=== PATIENT | female | born 1985 | race African-American/Black ===

== ENCOUNTER 2019-04-22 07:07 | Emergency (ER) | payer MEDICAID, OTHER ==
[~2019-04-22] VITALS: Ht 157.5 cm; Wt 80.0 kg
[~2019-04-22 07:07] MED LIST: BUTA1CAP38 PO; HC30CR25 TOP
[2019-04-22 07:09] VITALS: BP 116/52; PULSE 76; RESP 18; Ht 157.5 cm; Wt 80.0 kg
--- NOTE | 2019-04-22 10:56 | ERD ---
ER Documentation Chief Complaint Chief Complaint left arm posssible insect bite HPI 33-year-old female presenting with bug bite to left upper arm. She states very itchy and she noticed this earlier today. Denies any severe pain and no redness down her arm. Has not taken any medications or used any creams on the affected area. Patient is currently staying with a friend in a studio apartment which has roaches living in it. She is unsure if these are diallo bites or scutal bite sustained when she is is outside. She states she plans to move out within the next few days. Denies other medical problems. NKDA. Surgical history denies. Social history denies ROS All systems reviewed and are negative except as per history of present illness. Medications Home Meds Active Scripts Hydrocortisone* Topical (Hydrocortisone* Topical) 2.5%-28.3 Gm Cream..g., 1 APPLIC TOP BID, #1 TUB Prov:RBENDEN MEDEIROS PA-C 04/22/19 Addfhvbfsu-Nrzymwxsugtnj-Qjimwggj* (Fioricet*) 50-300-40 Mg Capsule, 1 CAP PO TID PRN for HEADACHE, #12 CAP Prov:JULIÁN KING MD 01/10/19 Allergies Allergies: Coded Allergies: No Known Allergy (Unverified , 01/10/19) PMhx/Soc Medical and Surgical Hx: pt denies Surgical Hx Hx Respiratory Disorders: Yes (ASTHMA) Hx Alcohol Use: Yes (occassional) Hx Substance Use: No Hx Tobacco Use: No Smoking Status: Never smoker FmHx Family History: No diabetes, No coronary disease, No other Physical Exam Vitals Vital Signs Date Temp Pulse Resp B/P (MAP) Pulse Ox O2 O2 Flow FiO2 Time Delivery Rate 04/22/19 97.5 76 18 116/52 99 07:09 (73) Physical Exam GENERAL: The patient is well-appearing, well-nourished, in no acute distress CHEST: Clear to auscultation bilaterally. There are no rales, wheezes or rhonchi. HEART: Regular rate and rhythm. No murmurs, clicks, rubs or gallops. EXTREMITIES: Equal pulses bilaterally. There is no peripheral clubbing, cyanosis or edema. No focal swelling or erythema. Full range of motion. Grossly neurovascularly intact. NEUROLOGIC: Alert and oriented. Cranial nerves II through XII intact. Motor strength in all 4 extremities with 5 out of 5 strength. Sensation grossly intact. Normal speech and gait. SKIN: Small erythematous wheal noted on the left upper arm with no lymphatic streaking or fluctuance. No induration. Procedures/MDM MDM: 33-year-old female presenting with insect bite to the left upper arm. I have low suspicion for deep tracking abscess. I have low suspicion for retained foreign body. Patient looks to have an insect bite and will be treated with supportive medications. I do not feel antibiotics are indicated. Patient is discharged with strict ER precautions and told to follow-up with primary care within 1 to 2 days for close evaluation. Patient is told symptoms change or worsen to return immediately to the ER. All questions answered at discharge Departure Diagnosis: Primary Impression: Insect bite Condition: Stable Patient Instructions: Insect Bite Referrals: [facility] YOU HAVE RECEIVED A MEDICAL SCREENING EXAM AND THE RESULTS INDICATE THAT YOU DO NOT HAVE A CONDITION THAT REQUIRES URGENT TREATMENT IN THE EMERGENCY DEPARTMENT. FURTHER EVALUATION AND TREATMENT OF YOUR CONDITION CAN WAIT UNTIL YOU ARE SEEN IN YOUR DOCTORS OFFICE WITHIN THE NEXT 1-2 DAYS. IT IS YOUR RESPONSIBILITY TO MAKE AN APPOINTMENT FOR FOLOW-UP CARE. IF YOU HAVE A PRIMARY DOCTOR --you should call your primary doctor and schedule an appointment IF YOU DO NOT HAVE A PRIMARY DOCTOR YOU CAN CALL OUR PHYSICIAN REFERRAL HOTLINE AT IF YOU CAN NOT AFFORD TO SEE A PHYSICIAN YOU CAN CHOSE FROM THE FOLLOWING [facility] [address] [facility] [facility] [address] [facility] [facility] [address] [facility] [facility] [address] [facility] [facility] [address] [facility] [facility] [facility]. [facility]. [address] Additional Instructions: FOLLOW UP WITH YOUR PRIMARY CARE PHYSICIAN TOMORROW.Return to this facility if you are not improving as expected. BRENDEN MEDEIROS PA-C Apr 22, 2019 10:56
== END 2019-04-22 07:31 | disposition home or self-care (01) ==
LOC: FTE 07:07
DX: S40.862A Insect bite (nonvenomous) of left upper arm, initial encounter (principal); J45.909 Unspecified asthma, uncomplicated; W57.XXXA Bitten or stung by nonvenomous insect and other nonvenomous arthropods, initial encounter; Y92.039 Unspecified place in apartment as the place of occurrence of the external cause
CPT/HCPCS: 99282